=== PATIENT | female | born 1990 | race Caucasian/White ===

== ENCOUNTER 2018-01-19 08:00 | Inpatient (IN) ==
[2018-01-19] MEDS ORDERED: Metoclopramide 10 MG/2 ML VIAL IVP PRN (08:43)
[2018-01-19] MEDS ORDERED: *HR* Nalbuphine 10 MG/ML AMPUL IVP PRN (08:43)
[2018-01-19] MEDS ORDERED: Ondansetron 4 MG/2 ML VIAL IVP PRN (08:43)
[2018-01-19] MEDS ORDERED: Famotidine 20 MG/2 ML VIAL IVP PRN (08:43)
[2018-01-19] MEDS ORDERED: Naloxone 0.4 MG/ML INJ IVP PRN (08:43)
[2018-01-19] MEDS ORDERED: Lidocaine 1% 20 ML MDV INFILT PRN (08:43)
[2018-01-19] MEDS ORDERED: Ringers Solution, Lactated 1,000 ML IVC SCH (08:45)
[2018-01-19] MEDS ORDERED: Oxytocin 20 units/ LR 1000 mL 20 UNIT/1,000 ML BAG IVC SCH ×3 (08:45→21:07)
[2018-01-19 10:35] LABS: Basophils % 0.3 %; Eosinophils % 0.1 %; Hematocrit 38.4 % (35.3-44.9); Hemoglobin 13.2 g/dL (11.5-15.4); Immature Granulocytes % 0.5 % (0-4); Lymphocytes # 1.3 K/mcL (0.6-4.6); Lymphocytes % 16.8 %; Mean Corpuscular HGB Conc 34.4 g/dL (31.6-35.5); Mean Corpuscular Hemoglobin 29.9 pg (28.0-33.3); Mean Corpuscular Volume 87.1 fL (83.0-100.0); Mean Platelet Volume 11.4 fL (9.4-12.4); Monocytes # 0.5 K/mcL (0.0-1.3); Neutrophils # 5.7 K/mcL (1.6-8.9); Platelet Count 123 K/mcL (140-400); Red Blood Count 4.41 M/mcL (3.82-4.97); Red Cell Distribution Width 13.1 % (11.5-14.5); Segmented Neutrophils % 75.3 %
--- NOTE | 2018-01-19 12:21 | OB/GYN History & Physical ---
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 Fry is a 27 year old female who presents today for TOLAC. She is at 39 weeks 4 days gestation, ULISES 01/22/18. Her first was a primary c- section for breech presentation. Her second was a successful . She has had an uncomplicated course and had care with Dr. Pickard. She admits to good movement and contractions. She denies vaginal bleeding or leakage of fluid. She also denies nausea, vomiting, fever, chills, headache, dizziness, vision changes, chest pain, shortness of breath, epigastric pain, dysuria, calf pain or pedal edema. 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 Past Med Surg Social Fam HX - Past Medical History Source: patient Medical history: no medical history Psychiatric history: no psych history - Past Surgical History Surgical History: , other Additional surgical history: wisdom teeth and facial reconstruction at age 1 - Social History Smoking Status: Never smoker Smokeless Tobacco Status: No Alcohol use: none Drug use: none Occupational status: unemployed Current living situation: Home Activity Level: Independent ambulation Recent Out of Country Travel Within the Last 8 Weeks: No Exposure or Possible Exposure to Illness During Travel: No - Family History Mother Adopted: No Race: Living Status: Still Living Hx Family Cardiac Disorders: Yes (Heart disease) Hx Family Respiratory Disorders: No Hx Family Cancer: Yes (pancreatic cancer) Hx Family GI Disorders: No Hx Family Genitourinary Disorders: No Hx Family Endocrine Disorder: No Hx Family Musculoskeletal Disorders: No Hx Family Neuromuscular Disorders: No Hx Family Neurologic Disorders: No Hx Family HEENT Disorders: No Hx Family Autoimmune Disorders: No Hx Family Reproductive Disorders: No Hx Family Psychosocial Disorders: No Hx Family Medical Disorders: Yes (Brother has charge syndrome) Obstetrical History - Pregnancies : 3 Para: 2 Term: 2 : 0 Ab's: 0 Livin - History/Complications History/Complications: 1st was for breech presentation 2nd was Medications and Allergies Diclegis Dr 10-10 mg Tablet 10 mg PO DAILY 01/19/18 [History] Pnv95/Ferrous Fumarate/FA [ Vitamin Tablet] 1 / PO DAILY 01/19/18 [History] Allergy/AdvReac Type Severity Reaction Status Date / Time No Known Allergies Allergy Verified 01/19/18 08:43 Review of System OB All systems PM: reviewed and no additional remarkable complaints except as stated Exam - Constitutional Constitutional: well developed, well nourished, no acute distress, average body habitus - HEENT HEENT: EOMI, Normocephaly, Mucus Membranes Moist - Neck Neck exam: full ROM, normal inspection, supple, trachea midline - Lungs Respiratory exam: CTAB - Cardiovascular Cardiovascular exam: RRR, +S1, +S2 - Abdomen Abdomen: Present: bowel sounds normal, gravid, non tender - Extremities Extremities exam: normal inspection, warm, radial pulses palpable and symmetrical Deep Tendon Reflex Grade: 2+ Normal - Vagina Vagina: Present: normal moisture - Cervix Dilation: 2 Effacement: 80 Station: -2 - Uterus Uterus exam: Present: normal size, normal contour Results Result Diagrams: 01/19/18 09:15 Abnormal lab results Plt Count 123 K/mcL (140-400) L 01/19/18 09:15 All other labs normal. - VTE Reasons for not Prescribing Prophylaxis: Treatment not Indicated - Low risk for VTE
--- NOTE | 2018-01-19 12:46 | OB Labor Progress Note ---
Date of Encounter: 01/19/18 Time of Encounter: 12:43 Labor Progress Note - Subjective Subjective: patient states feeling occ contractions but doing well - Cervix Cervix: 2/80/-2 Marie catheter placed with 60cc balloon inflated patient tolerated the insertion. - Heart Tones Heart Tones: heart tones 140s reactive - [place]: Occasional contractions seen - Interventions Interventions: will start low dose pitocin if contractions that are irregular
[2018-01-19] MEDS ORDERED: *HR* FentaNYL (PF) 100 MCG/2 ML VIAL EP ONE (15:04)
[2018-01-19] MEDS ORDERED: Bupivacaine-MPF 0.25% 10 ML VIAL EP ONE (15:04)
[2018-01-19] MEDS ORDERED: Lidocaine -MPF 1% 5 ML AMPUL ONE (15:06)
[2018-01-19] MEDS ORDERED: *HR* FentaNYL (PF) 100 MCG/2 ML VIAL ONE (15:06)
[2018-01-19] MEDS ORDERED: Bupivacaine-MPF 0.25% 10 ML VIAL ONE (15:06)
[2018-01-19] MEDS ORDERED: Epidural Premix (fent/bupiv) 110 ML EP SCH (15:15)
--- NOTE | 2018-01-19 15:48 | Anesthesia Evaluation PreOp ---
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 Other Medical History: Denies Any Significant HX Anesthesia History: No Prior Anesthetic Complications (denies personal and family h/o GA complications), Past Anesthesia (single shot spinal x1; GA x 1; never had an epidural) : Yes Alcohol Use: none Drug use: none Medications and Allergies Inna Dr 10-10 mg Tablet 10 mg PO DAILY 01/19/18 [History] Pnv95/Ferrous Fumarate/FA [ Vitamin Tablet] 1 / PO DAILY 01/19/18 [His tory] Allergy/AdvReac Type Severity Reaction Status Date / Time No Known Allergies Allergy Verified 01/19/18 08:43 - Meds/Allergy Pre-op Review Medications Reviewed: Yes Allergies Reviewed: Yes Beta Blockers on Current Med List: No Anesthesia Results - Labs 01/19/18 09:15 Anesthesia Exam 117/75, HR 88, RR16 Height: 1.63m Weight: 70kg NPO (# of Hours): >8hrs Pain Scale: 8 Pain Scale Used: Numeric (1 - 10) - HEENT Pupil (Motor): Pupils equal Mallampati: II Teeth: Normal Oral Opening: Greater than 3 - MANAGER [employer] SAL[employer] LOC: Oriented MANAGER [employer] Motor: Normal RUE, Normal LUE, Normal RLE, Normal LLE, Normal Face MANAGER [employer] Sensory: Normal: RUE, LUE, RLE, LLE, Face - Cardiac Rhythm: Regular Murmur: None - Pulmonary Breath Sounds: bilateral Clear Respiratory Effort: Symmetrical Anesthesia Assess/Plan ASA Score: 2 Level of consciousness: Cooperative, Oriented, Restless Anesthetic Plan: Epidural Autologous Blood: No Monitoring Plan: Standard Monitors Recovery Plan: Other
--- NOTE | 2018-01-19 15:55 | Anesthesia Procedures ---
Date of Encounter: 01/19/18 Time of Encounter: 15:53 Procedures: Anesthesia - Epidural/Spinal Patient ID/Chart reviewed: Yes Patient examined: Yes OB Eval: Gestational age: 39 weeks 4 days OB Eval: : 3 OB Eval: Hx Para: 2 OB Eval: Dilated at (cm): 5 OB Eval: Contractions: Non-stressed pattern Consent Obtained: Yes Supplemental Oxygen: None/Room Air Site Prep: Aseptic Technique, Sterile prep and drape, Povidone-Iodine 1% Patient position: upright Local Anesthetic: Lidocaine 1% Amount of Local Anesthetic used: 3 Touhy Needle Gauge: 18 Touhy Needle Depth (cm): 5 Catheter Depth at Skin (cm): 10 Test Dose (1.5% Lido + Epi): Volume given (mls): 5 Test Dose Result: Negative Loading Dose: 0.25% Marcaine (mls): 5 Loading Dose: Fentanyl (mcg): 100 Loading Dose Administered: Thru Catheter Infusion Med: 0.125% Bupivacaine w/ 2 mcg/ml Fentanyl Infusion Rate (mls/hr): 12 (w/ demand bolus of 6mL q30min PRN) Catheter Secured in Place: Tegaderm, Tape Interspace Used: L3-L4 Loss of Resistance (SHAHID): Yes Blood: No CSF: No Paresthesia: No Procedure: successful on 1st attempt; patient tolerated procedure well; patient w/ BP reading of 83/51 after bolus which responded well to 200mcg phenylephrine bolus Vitals + FHT's: see [facility]URKS's electronic records for VS entry
--- NOTE | 2018-01-19 16:57 | OB/GYN Progress Note ---
Date of Encounter: 01/19/18 Time of Encounter: 16:00 - Assessment and Plan (1) 39 weeks gestation of Current Visit: Yes Status: Acute (2) Hx successful (vaginal after ), currently Current Visit: Yes Status: Acute Subjective - Subjective Principal diagnosis: labor eval Interval history: 27-year-old female with history of successful presented today for induction of labor. Patient had Marie induction. Patient had spontaneous rupture membranes after Marie removed. On exam today her cervix is now 6 cm 80% and a +1 station. Antepartum ROS: new complaints Objective - Vital Signs Vital Signs: Intake and Output 01/19/18 01/19/18 01/19/18 07:59 15:59 23:59 Other: Weight 70.7 kg Patient Weight 01/19/18 23:59 Weight 70.7 kg - Exam FHR: category 1 Abdomen: Present: normal appearance Uterus: Present: normal Cervical dilation: 6-7 Cervix effacement: 80 station: +1 - Labs Labs: Abnormal lab results Plt Count 123 K/mcL (140-400) L 01/19/18 09:15
--- NOTE | 2018-01-19 18:38 | OB/GYN Procedure Note ---
Delivery - Delivery Date: 01/19/18 Provider: Maverick Pickard Intrapartum events: none Delivery induction: oxytocin, levin Delivery augmentation: pitocin Delivery monitor: external FHT, external uterine, internal FHT Anesthesia: epidural Quantitated Blood Loss: 300 - Infant (s) A Delivery Time: 18:22 Presentation: vertex Position: HANDY Route of delivery: Gender: Female Viability: Viable Pounds: 7 Ounces: 15 Weight Gram: 3.615 kg at 1 minute: 8 at 5 mins: 9 Shoulder Dystocia: not encountered Specimens collected: cord blood Placenta: spontaneous Cord: nuchal cord, nuchal reduced - Repair Episiotomy: none Laceration Description: Perineal - 1st Degree - Complications Delivery complications: none - Disposition Mom disposition: stable in LDR [place] disposition: stable in LDR - Comments Comments: Patient progressed to complete and pushing and had a rapid spontaneous vaginal delivery of a female infant over an intact perineum. Infant's head was in the perineum easily. There was a cord around the neck 1 which was easily reduced. The rest the infant was then delivered with 1 push. Infant cried immediately upon delivery. The cord was clamped cut. The was in passed nurse in attendance. Cord blood was obtained. Placenta was delivered spontaneously intact uterine scar was palpated and found to be intact. There were no cervical, vaginal, or periurethral lacerations noted. There was a first-degree perineal laceration repaired with one interrupted 3-0 Vicryl stitch. Patient delivered a female infant weight was 7 lbs. 15 oz. with Apgars of 8 at 1 minute and 9 at 5 minutes.
[2018-01-19] MEDS ORDERED: Measles/Mumps/Rubella Vacc 0.5 ML VIAL SQ PRN (21:07)
[2018-01-19] MEDS ORDERED: Acetaminophen 325 MG TABLET PO PRN (21:07)
[2018-01-19] MEDS: Ibuprofen 600 MG TABLET PO PRN (22:37)
[2018-01-20] MEDS ORDERED: Benzocaine/Menthol 56 GM AEROSOL SPRAY TP PRN (05:28)
[2018-01-20] MEDS: Ibuprofen 600 MG TABLET PO PRN (06:29)
[2018-01-20 06:58] LABS: Basophils % 0.2 %; Eosinophils % 0.3 %; Hematocrit 30.5 % (35.3-44.9); Immature Granulocytes % 0.6 % (0-4); Lymphocytes # 1.3 K/mcL (0.6-4.6); Lymphocytes % 12.5 %; Mean Corpuscular HGB Conc 34.4 g/dL (31.6-35.5); Mean Corpuscular Hemoglobin 30.2 pg (28.0-33.3); Mean Corpuscular Volume 87.6 fL (83.0-100.0); Mean Platelet Volume 10.9 fL (9.4-12.4); Monocytes # 1.1 K/mcL (0.0-1.3); Monocytes % 11.2 %; Neutrophils # 7.6 K/mcL (1.6-8.9); Platelet Count 100 K/mcL (140-400); Red Blood Count 3.48 M/mcL (3.82-4.97); Red Cell Distribution Width 13.2 % (11.5-14.5); Segmented Neutrophils % 75.2 %
[2018-01-20 07:04] LABS: Hemoglobin 10.5 g/dL (11.5-15.4)
[2018-01-20] MEDS ORDERED: Prenatal Vit/FA 1 EACH TABLET PO SCH (09:00)
--- NOTE | 2018-01-20 09:31 | Discharge Summary ---
Date of Encounter: 01/20/18 Time of Encounter: 09:29 - Discharge Diagnosis (1) History of vaginal after Priority: Primary Status: Acute Comments: Patient doing well greater than 12 hours post . Tolerating regular diet Pain well-controlled with Motrin. Discharge home this evening (2) Breast feeding status of mother Priority: Secondary Status: Acute Comments: support as needed Patient states she has a breast pump at home (3) First degree perineal laceration Priority: Secondary Status: Acute Comments: Ice pad to perineum for the first 24 hours. Dermoplast as needed Motrin for pain - Discharge Medications Prescriptions: Ibuprofen [Motrin] 600 mg PO Q6HR PRN #60 tablet PRN Reason: Pain Ferrous Sulfate 325 mg PO DAILY #30 tablet Home Medications: Pnv95/Ferrous Fumarate/FA [ Vitamin Tablet] 1 / PO DAILY 01/19/18 [History] Acetaminophen [Tylenol] 650 mg PO Q6HR PRN tablet 01/20/18 [Rx] Benzocaine/Menthol [place] [Dermoplast [place]] 1 appl TP QID PRN aerosol 01/20/18 [Rx] Docusate [Colace] 100 mg PO BID capsule 01/20/18 [Rx] Ferrous Sulfate 325 mg PO DAILY #30 tablet 01/20/18 [Rx] Ibuprofen [Motrin] 600 mg PO Q6HR PRN #60 tablet 01/20/18 [Rx] Allergies/Adverse Reactions: Allergy/AdvReac Type Severity Reaction Status Date / Time No Known Allergies Allergy Verified 01/19/18 08:43 Data Procedures and tests throughout hospitalization: Laboratory Tests 01/19/18 01/20/18 09:15 06:13 WBC 7.6 10.0 RBC 4.41 3.48 L Hgb 13.2 10.5 L D Hct 38.4 30.5 L MCV 87.1 87.6 MCH 29.9 30.2 MCHC 34.4 34.4 RDW 13.1 13.2 Plt Count 123 L 100 L MPV 11.4 10.9 Immature Gran % 0.5 0.6 Seg Neutrophils % 75.3 75.2 Lymphocytes % 16.8 12.5 Monocytes % 7.0 11.2 Eosinophils % 0.1 0.3 Basophils % 0.3 0.2 Neutrophils # 5.7 7.6 Lymphocytes # 1.3 1.3 Monocytes # 0.5 1.1 Eosinophils # 0.0 0.0 Basophils # 0.0 0.0 Labs on day of discharge: Labs from last 24 hours 01/20/18 01/19/18 06:13 09:15 WBC 10.0 7.6 RBC 3.48 L 4.41 Hgb 10.5 L D 13.2 Hct 30.5 L 38.4 MCV 87.6 87.1 MCH 30.2 29.9 MCHC 34.4 34.4 RDW 13.2 13.1 Plt Count 100 L 123 L MPV 10.9 11.4 Immature Gran % 0.6 0.5 Seg Neutrophils % 75.2 75.3 Lymphocytes % 12.5 16.8 Monocytes % 11.2 7.0 Eosinophils % 0.3 0.1 Basophils % 0.2 0.3 Neutrophils # 7.6 5.7 Lymphocytes # 1.3 1.3 Monocytes # 1.1 0.5 Eosinophils # 0.0 0.0 Basophils # 0.0 0.0 Date of admission: 01/19/18 08:05 Primary care physician: True Thompson DO Consults: 01/19/18 21:07 Consult to Broadcast Supervisor [CONS] Routine Comment: Vaginal delivery, consult needed Discharging clinician: Kym Joseph Anticipated date of discharge: 01/20/18 - Patient Status Disposition: Home, Self-Care Condition: Good Functional capacity at discharge: independent ambulation Overall status at discharge: patient is progressing back to baseline - Discharge Instructions Follow Up With: Ganga Thompson DO [Primary Care Provider] - Maverick Pickard MD [Partnered Physician] - - Diet and Activity Activity: resume usual activities as tolerated Diet: regular diet Hospital Course Reason for admission: induction of labor Delivery: , other () Episiotomy: none Laceration: 1st degree Other procedures: none complications: none Discharge diagnosis: IUP at term delivered baby: female Hospital course: Patient is doing well greater than 12 hours post vaginal delivery after C- section. She is tolerating regular diet, voiding without difficulty, pain is controlled with Motrin. Will send patient home this evening. To follow-up with Dr. Pickard as scheduled in 4 weeks. - Delivery Date: 01/19/18 Provider: Maverick Pickard Intrapartum events: none Delivery induction: oxytocin, levin Delivery augmentation: pitocin Delivery monitor: external FHT, external uterine, internal FHT Anesthesia: epidural Quantitated Blood Loss: 300 - Infant (s) Infant A Delivery Time: 18:22 Presentation: vertex Position: HANDY Route of delivery: Gender: Female Viability: Viable Pounds: 7 Ounces: 15 Weight Gram: 3.615 kg at 1 minute: 8 at 5 mins: 9 Shoulder Dystocia: not encountered Specimens collected: cord blood Placenta: spontaneous Cord: nuchal cord, nuchal reduced - Repair Episiotomy: none Laceration Description: Perineal - 1st Degree - Complications Delivery complications: none - Disposition Mom disposition: stable in LDR [place] disposition: stable in LDR - Comments Comments: Patient progressed to complete and pushing and had a rapid spontaneous vaginal delivery of a female over an intact perineum. Infant's head was in the perineum easily. There was a cord around the neck 1 which was easily reduced. The rest the was then delivered with 1 push. cried immediately upon delivery. The cord was clamped cut. The was in passed nurse in attendance. Cord blood was obtained. Placenta was delivered spontaneously intact uterine scar was palpated and found to be intact. There were no cervical, vaginal, or periurethral lacerations noted. There was a first-degree perineal laceration repaired with one interrupted 3-0 Vicryl stitch. Patient delivered a female infant weight was 7 lbs. 15 oz. with Apgars of 8 at 1 minute and 9 at 5 minutes. Time Attestation: Total time spent providing and/or coordinating discharge services: Time Spent: Less than 30 minutes Exam - Constitutional Vitals: Temp Pulse Resp BP Pulse Ox 97.8 F 74 16 104/69 100 01/20/18 07:30 01/20/18 07:30 01/20/18 07:30 01/20/18 07:30 01/20/18 05:25 General appearance IM: A&O X 3, pleasant, no acute distress, answers questions appropriately - Respiratory Respiratory exam: Present: CTAB - Cardiovascular Cardiovascular exam IM: Present: RRR, +S1, +S2 - GI/Abdominal GI/Abdominal exam IM: normal bowel sounds - Rectal Rectal exam: deferred - Uterine Tone: Firm Uterus Position: At Umbilicus, Right of Midline - Extremities Exam Extremities exam IM: Present: full ROM, normal capillary refill, normal inspection - Neurological Exam Neurological exam: alert, normal gait, oriented X3
[2018-01-20 16:12] VITALS: BP 108/73
== END 2018-01-20 21:36 | disposition home or self-care (01) | DRG 560 ==
LOC: 1NENULAB 08:05 → 1NENUOBS 21:06
PROVIDERS: ADMIT Obstetrics & Gynecology; ATTEND Obstetrics & Gynecology